=== PATIENT | female | born 1990 | race Caucasian/White ===

== ENCOUNTER 2017-04-09 18:30 | Observation (INO) | payer OTHER ==
[2017-04-09 19:03] LABS: PLATELET COUNT 315 10^3/uL (150-400)
--- NOTE | 2017-04-09 19:43 | PDGENHP ---
History and Physical History and Physical: HPI: Patient is a 27 yo that presents to L&D with complaints of severe heartburn and headache that is intermittent. She states she has tried tylenol with no relief. She has tried Tums with no relief. She denies any visual changes. She denies any OB complaints (contractions, LOF, VB). She reports +FM. EDC: 05/11/16 which is based on LMP: 08/03/16 which is known and consistent with Ultrasound at 20 weeks. Her is complicated by: Rubella Nonimmune, fam hx of cleft lip Review of Systems: Constitutional: Denies any fever, chills, or fatigue HEENT: denies any visual changes, difficulty swallowing, hearing loss Cardiovascular: Denies any chest pain, palpitations, leg swelling Respiratory: denies any cough, wheezing, or shortness of breathe GI: Denies any nausea, vomiting, diarrhea, constipation; reports +heartburn : denies any dysuria, urgency, frequency, vaginal bleeding Musculoskeletal: denies any muscle or bone pain Skin: denies any rashes Neuro: denies any seizures, lightheadedness, dizziness, or loss of consciousness ; does report intermittent headache. Psychiatric: denies any depression, anxiety, or SI/HI thoughts HISTORY: Previous OB history: G1 Past medical history: rubella nonimmune Past surgical history: oral surgery Medications: PNV Allergies (list reaction): NKDA LABS: Rh: O+ ABS: Neg Rubella: Immune HbsAg: NR HIV: NR VDRL: NR 1hr: 87 GC: Neg Chlamydia: Neg Pap: Normal GBS: unknown BMI: (prepreg) 27 PHYSICAL EXAM: Constitutional: WN, A&Ox3 HEENT: normocephalic atraumatic, supple Heart: RRR, no murmur Chest: CTA-B Abdomen: Soft, nontender, gravid SVE: 1/th/high Extremities: trace edema, negative homans sign Neuro: grossly normal Psych: normal affect assessment: Reassuring FHTs, baseline 130 +accels, no decels, moderate variability Contractions: toco q 2-8 Assessment: 1) 27yo with IUP@ 35-3wks 2) no evidence of PreE 3) no evidence of labor 4) heartburn 5) elevated P:C ratio Plan: 1) d/c home with 24 hr urine 2) advised PO zantac 150mg BID 3) keep next sched appt in office 4) FKC and PTL Prec discussed 5) discussed Pre E S&S- aware to call/return if any occur 6) discussed with Dr. Christo Dey- agrees with POC
== END 2017-04-09 21:15 | disposition home or self-care (01) ==
LOC: FLD 18:30
PROVIDERS: ADMIT Advanced Practice Midwife; ATTEND Advanced Practice Midwife
DX: O13.3 Gestational [pregnancy-induced] hypertension without significant proteinuria, third trimester (principal); Z3A.35 35 weeks gestation of pregnancy
CPT/HCPCS: 59025; G0378

== ENCOUNTER 2017-04-22 06:14 | Inpatient (IN) | payer OTHER ==
[2017-04-22 07:04] LABS: PLATELET COUNT 259 10^3/uL (150-400)
--- NOTE | 2017-04-22 07:08 | OBPROG ---
Labor Progress Note Assessment/Plan: Assessment:cat 1 fhr contractions q 5-6 minutes exam 2-3/75/-2 cephalic posterior right sided pain in abdomen wont go away denies PIH symptoms hypertension Plan:observation, pih labs IV continuous monitoring 04/22/17 07:06 04/22/17 07:09 Subjective/Intrapartum Course: 04/22/17 07:06 Regular contractions minimal pain. Right sided pain that won't go away that is causing greater pain. Denies leaking bleeding and cramping - SVE Dilation (cm): 2, 3 Effacement (%): 75 Station: -2 Membranes: Intact - Contraction Pattern Assessment Current Contraction Pattern: Regular - FHR Assessment Mae FHR (bpm): 145 FHR Pattern Variability: Moderate FHR Category: 1 - Physical Exam General Appearance: WD/WN, alert, no apparent distress Respiratory: chest non-tender, lungs clear, normal breath sounds Cardiac/Chest: regular rate, rhythm Abdomen: normal bowel sounds, other (right sided abdominal pain) Extremities: normal range of motion, Eddie's sign (negative bilaterally) DTR- Lower Extremities: Knee (R): 1+, Knee (L): 1+ (no clonus) Skin: normal color, warm/dry Neuro/Psych: no motor/sensory deficits, alert, normal mood/affect, oriented x 3 ICD10 Worksheet Patient Problems: Problems Problem Status Onset Hypertension affecting in third trimester Acute - ICD10 Problem Qualifiers (1) Hypertension affecting in third trimester
--- NOTE | 2017-04-22 07:41 | GHP ---
[f rep st] HISTORY AND PHYSICAL DATE OF ADMISSION: 04/22/2017 HISTORY OF PRESENT ILLNESS: Patient is a 27-year-old 1, para 0 with an EDC of 05/11/2017, at 37 weeks and 3 days gestational age, who comes in with complaint of regular contractions and pain on the right side of her abdomen that is continuous. Denies headache, blurry vision, spots, before eyes . States feeling positive movement. Denies bloody show. Denies rupture of membranes. Contra ctions are q.5-6 minutes apart and have been since about 8:30, 9 o'clock yesterday evening. Patient has been seen by [facility] since 8 weeks and 3 days. MEDICAL HISTORY: Rare UTI. SURGICAL HISTORY: Cyst removal left cheek at the age of 16, wisdom teeth extraction at the age of 22 . FAMILY HISTORY: Cleft lip. HISTORY: Patient is a primip, nonimmune to rubella. SOCIAL HISTORY: Patient denies drug use, alcohol use with the . The patient is to [place]. REVIEW OF SYSTEMS: Times 10 noncontributory. LABS: Patient is O positive, antibody negative. RPR is nonreactive. Rubella is nonimmune. Hepatit is is negative. HIV is negative. GBS is negative. Gonorrhea and chlamydia are negative. ALLERGIES: The patient has NKDA. MEDICATIONS: vitamin with DHA and iron q. day. GYNECOLOGICAL HISTORY: The patient began her menarche at 13 years of age, 28-day interval, 4 days of length. LMP was 08/03/2016. PHYSICAL ASSESSMENT: GENERAL: Patient is awake, alert, oriented x3. LUNGS: Clear bilaterally. AB DOMEN: Bowel sounds are positive in all 4 quadrants. NEUROLOGIC: DTRs are 1+ bilaterally with no c lonus. Homans sign is negative bilaterally. Patient complains of right abdominal pain from bottom o f rib cage down to pelvic bone. States that she started feeling that in the night and that has been continuous. Contractions are every 5-6 minutes. PELVIC: Patient is 2-3, 75, -2, posterior, soft, c ephalic. VITAL SIGNS: The patient on admit had 2 high blood pressures, 144/96, 135/96. Denies othe r PIH symptoms. PLAN OF CARE: 1. Patient is GBS negative. 2. PIH labs, continuous assessment of blood pressure, and transfer of care to Dr. Sophie Garza. /[id number]/MODL
[2017-04-22] MEDS ORDERED: MAG HYDROX/AL HYDROX/SIMETH 30 ML UDCUP PO ONE (10:28)
[2017-04-22] MEDS ORDERED: LIDOCAINE 2% VISCOUS 15 ML UDCUP PO ONE (10:28)
[2017-04-22] MEDS ORDERED: HYOSCYAMINE SULFATE 0.125 MG TAB PO ONE (10:28)
[2017-04-22] MEDS ORDERED: EPSOM SALT 454 GM TP PRN (10:30)
[2017-04-22] MEDS ORDERED: OXYTOCIN 20 UNIT in LR 1,000 ML IV PRN (10:30)
[2017-04-22] MEDS ORDERED: TERBUTALINE SULFATE 1 MG/ML VIAL IV PRN (10:30)
[2017-04-22] MEDS ORDERED: OLIVE OIL 118 ML BTL MISC PRN (10:30)
[2017-04-22] MEDS ORDERED: AMMONIA AROMATIC 1 EACH AMP IH PRN (10:30)
[2017-04-22] MEDS ORDERED: MISOPROSTOL 200 MCG TAB PO PRN (10:30)
[2017-04-22] MEDS ORDERED: LR 1,000 ML IV PRN (10:30)
[2017-04-22] MEDS ORDERED: LR 500 ML IV PRN (10:31)
--- NOTE | 2017-04-22 10:36 | OBPROG ---
Labor Progress Note Assessment/Plan: Assessment: Pt is a 26 y/o @ 37 3/7 weeks with mild preeclampsia Plan: Discussed with MFM-Dr. Quijano and with elev BPs upon admission 140/90's and elev P:C ratio, new dx of mild preeclampsia and recommend delivery at this time Pt with continuous R sided pain from rib cage to pelvis; will try GI cocktail and if no relief will trend LFTs q 6 hrs and if elev start MgSO4 Pt with a favorable cervix and Mishra score of 6, will start Pitocin per protocol GBS is negative, no prophylactic abx needed Will cont to monitor BPs and symptoms FHTs - Cat I tracing 04/22/17 10:32 Subjective/Intrapartum Course: 04/22/17 07:06 Regular contractions minimal pain. Right sided pain that won't go away that is causing greater pain. Denies leaking bleeding and cramping 04/22/17 10:36 Pt seen and examined. Stated R sided pain from rib cage to pelvic bone is still present and now 5/10 and at 0445 this am was an 8/10 that awoken her. Denies any HAs or visual changes. Denies any n/v. Can feel ctx's in lower abdomen. Denies any LOF or VB. Good FM noted. Objective: 04/22/17 06:45 04/22/17 06:45 Uric Acid 4.9 mg/dL (2.5-6.8) 04/22/17 06:45 Total Bilirubin 0.6 mg/dL (0.1-1.4) 04/22/17 06:45 Conjugated Bilirubin 0.3 mg/dL (0.0-0.5) 04/22/17 06:45 Unconjugated Bilirubin 0.3 mg/dL (0.0-1.1) 04/22/17 06:45 AST 24 IU/L (14-46) 04/22/17 06:45 ALT 29 IU/L (9-52) 04/22/17 06:45 Lactate Dehydrogenase 551 IU/L (313-618) 04/22/17 06:45 - SVE Membranes: Intact - Contraction Pattern Assessment Current Contraction Pattern: Irregular - FHR Assessment Mae FHR (bpm): 140 FHR Pattern Variability: Moderate FHR Category: 1 - AP Antepartum Course: 04/22/17 10:41 uncomplicated; Rubella non-immune. GBS neg. BPs normal. - Physical Exam Abdomen: normal bowel sounds, soft, other (mild tenderness R sided abdomen; garvid) Extremities: non-tender, normal inspection DTR- Lower Extremities: Plantar (R): 1+, Plantar (L): 1+ Neuro/Psych: alert, normal mood/affect, oriented x 3 Oxytocin Orders Assessment - Pre-Induction/Augmentation Assessment Gestational Age: 37 week(s) and 2 day(s) ICD10 Worksheet Patient Problems: Problems Problem Status Onset Hypertension affecting in third trimester Acute Mild preeclampsia Acute - ICD10 Problem Qualifiers (1) Mild preeclampsia
[2017-04-22] MEDS ORDERED: OXYTOCIN 30 UNIT in NS 500 ML IV SCH (10:45)
[2017-04-22] MEDS ORDERED: TERBUTALINE SULFATE 1 MG/ML VIAL ONE (11:40)
[2017-04-22] MEDS ORDERED: AMMONIA AROMATIC 1 EACH AMP IH ONE (11:40)
[2017-04-22] MEDS ORDERED: OLIVE OIL 118 ML BTL ONE (11:40)
[2017-04-22] MEDS ORDERED: LIDOCAINE 1% 300 MG/30 ML SDV ONE (11:40)
[2017-04-22] MEDS ORDERED: OXYTOCIN 10 UNIT/ML VIAL ONE (11:41)
--- NOTE | 2017-04-22 15:46 | OBPROG ---
Labor Progress Note Assessment/Plan: Assessment: Pt is a 26 y/o @ 37 3/7 weeks with mild preeclampsia Plan: Cervical exam is unchanged. SVE 1-2/50/-2, unable to AROM-head ballotable Attempted griffiths bulb placement and unable to get past internal os Pitocin was at 14 mu/min, pt states pain with ctx's 6/10 and ctx's q 2-3 min Pt desires an epidural when ctx's become more painful BPs stable 120-130/70-80's, asymptomatic. Will cont to closely monitor FHTs - Cat I tracing Discussed stopping Pitocin since no cervical change and by my exam only 1-2 cm dilated Will give oral Cytotec throughout the night and restart Pitocin in am at 0600 Pt agrees with the plan Regular diet for dinner 04/22/17 16:00 Subjective/Intrapartum Course: 04/22/17 07:06 Regular contractions minimal pain. Right sided pain that won't go away that is causing greater pain. Denies leaking bleeding and cramping 04/22/17 10:36 Pt seen and examined. Stated R sided pain from rib cage to pelvic bone is still present and now 5/10 and at 0445 this am was an 8/10 that awoken her. Denies any HAs or visual changes. Denies any n/v. Can feel ctx's in lower abdomen. Denies any LOF or VB. Good FM noted. 04/22/17 15:58 Pt states pain with ctx's 6/10. Right sided pain resolved after GI cocktail. No BLANDON's, visual changes-scotomata, RUQ pain. Objective: 04/22/17 06:45 04/22/17 06:45 Patient ABO/Rh O POSITIVE 04/22/17 10:40 Uric Acid 4.9 mg/dL (2.5-6.8) 04/22/17 06:45 Total Bilirubin 0.6 mg/dL (0.1-1.4) 04/22/17 06:45 Conjugated Bilirubin 0.3 mg/dL (0.0-0.5) 04/22/17 06:45 Unconjugated Bilirubin 0.3 mg/dL (0.0-1.1) 04/22/17 06:45 AST 24 IU/L (14-46) 04/22/17 06:45 ALT 29 IU/L (9-52) 04/22/17 06:45 Lactate Dehydrogenase 551 IU/L (313-618) 04/22/17 06:45 - SVE Dilation (cm): 2 (1-2 cm by my exam) Effacement (%): 50 Station: -3 Membranes: Intact - Contraction Pattern Assessment Current Contraction Pattern: Regular (q2-4) - FHR Assessment Mae FHR (bpm): 130 FHR Pattern Variability: Moderate FHR Category: 1 - AP Antepartum Course: 04/22/17 10:41 uncomplicated; Rubella non-immune. GBS neg. Pt presented to hospital with R sided pain from rib cage to pelvic bone and elev BPs 140/90's. Elevated P :C ratio. 04/22/17 15:57 Oxytocin Orders Assessment - Pre-Induction/Augmentation Assessment Gestational Age: 37 week(s) and 2 day(s) ICD10 Worksheet Patient Problems: Problems Problem Status Onset Hypertension affecting in third trimester Acute Mild preeclampsia Acute - ICD10 Problem Qualifiers (1) Mild preeclampsia
[2017-04-22] MEDS ORDERED: ZOLPIDEM TARTRATE 5 MG TAB PO PRN (16:09)
[2017-04-22] MEDS: MISOPROSTOL 100 MCG TAB PO SCH ×2 (17:52→21:58)
[2017-04-23] MEDS: MISOPROSTOL 100 MCG TAB PO SCH (02:01)
[2017-04-23] MEDS ORDERED: OXYTOCIN 30 UNIT in NS 500 ML IV SCH (06:00)
--- NOTE | 2017-04-23 09:16 | OBPROG ---
Labor Progress Note Assessment/Plan: Assessment: 27 y/o @ 37 4/7 weeks IOL secondary to pre-eclampsia doing well. Plan: AROM now and cervix has a much more favorable Mishra's score. Continue pitocin this am, ambulate and epidural when desires. status reassuring and BP have remained stable. 04/23/17 09:14 Subjective/Intrapartum Course: 04/22/17 07:06 Regular contractions minimal pain. Right sided pain that won't go away that is causing greater pain. Denies leaking bleeding and cramping 04/22/17 10:36 Pt seen and examined. Stated R sided pain from rib cage to pelvic bone is still present and now 5/10 and at 0445 this am was an 8/10 that awoken her. Denies any HAs or visual changes. Denies any n/v. Can feel ctx's in lower abdomen. Denies any LOF or VB. Good FM noted. 04/22/17 15:58 Pt states pain with ctx's 6/10. Right sided pain resolved after GI cocktail. No BLANDON's, visual changes-scotomata, RUQ pain. 04/23/17 09:11 Pt rested well overnight. She felt some cramping and contractions with the cytotec, but not severe. She denies BLANDON, visual changes and overall fells well. Good FM. Objective: 04/22/17 06:45 04/22/17 06:45 Patient ABO/Rh O POSITIVE 04/22/17 10:40 Uric Acid 4.9 mg/dL (2.5-6.8) 04/22/17 06:45 Total Bilirubin 0.6 mg/dL (0.1-1.4) 04/22/17 06:45 Conjugated Bilirubin 0.3 mg/dL (0.0-0.5) 04/22/17 06:45 Unconjugated Bilirubin 0.3 mg/dL (0.0-1.1) 04/22/17 06:45 AST 24 IU/L (14-46) 04/22/17 06:45 ALT 29 IU/L (9-52) 04/22/17 06:45 Lactate Dehydrogenase 551 IU/L (313-618) 04/22/17 06:45 - SVE Dilation (cm): 3 Effacement (%): 75 Station: -2 Membranes: AROM, Intact Amniotic Fluid Color: Clear - Contraction Pattern Assessment Current Contraction Pattern: Regular (q2-4), Irregular (Q 3-4) - FHR Assessment Mae FHR (bpm): 140 FHR Pattern Variability: Moderate FHR Category: 1 - Procedures Non-surgical Procedures: Amniotomy - AP Antepartum Course: 04/22/17 10:41 uncomplicated; Rubella non-immune. GBS neg. Pt presented to hospital with R sided pain from rib cage to pelvic bone and elev BPs 140/90's. Elevated P :C ratio. 04/22/17 15:57 Oxytocin Orders Assessment - Pre-Induction/Augmentation Assessment Gestational Age: 37 week(s) and 2 day(s) ICD10 Worksheet Patient Problems: Problems Problem Status Onset Hypertension affecting in third trimester Acute Mild preeclampsia Acute
[2017-04-23] MEDS ORDERED: fentaNYL 2MCG/ML/BUP 0.1% RTU 100 ML BAG EP ONE (12:54)
[2017-04-23] MEDS ORDERED: PHENYLEPHRINE HCL 100 MCG/ML SYR ONE (12:54)
[2017-04-23] MEDS ORDERED: ONDANSETRON 4 MG/2 ML VIAL IVP PRN (13:29)
[2017-04-23] MEDS ORDERED: PHENYLEPHRINE HCL 100 MCG/ML SYR IVP PRN (13:29)
--- NOTE | 2017-04-23 13:29 | PREANESOB ---
Obstetric Pre-Anesthesia Info - General Info : 1 Para: 0 MACRINA: 05/11/17 Gestational Age: 37 week(s) and 2 day(s) - Info Status: Full Term, Mae Monitors: External FHR Pattern: Reassuring - Labor Status Cervical Dilation per last OB SVE: 3 Station per last OB SVE: -2 Amniotic Fluid Color: Clear PIH: Mild Indications for Labor Analgesia: Induction of Labor, Pain Control Labor Epidural: Proposed Anesthesia Allergies/Adverse Reactions: Allergy/AdvReac Type Severity Reaction Status Date / Time No Known Allergies Allergy Unverified 04/09/17 18:50 Home Medications: Medication Instructions Recorded Vitamins 1 tab PO DAILY 04/09/17 Visit Medications: Generic Name Dose Route Start Last Admin Trade Name Freq PRN Reason Stop Dose Admin Ammonia (Aromatic Spirit) 1 each 04/22/17 10:30 Ammonia Aromatic IH 05/02/17 10:29 ONCE PRN Fainting Oxytocin 20 unit/ Lactated 1,002 mls @ 150 mls/hr 04/22/17 10:30 Ringer's IV PRN PRN Post- bleeding Oxytocin 30 unit/ Sodium 503 mls @ 0 mls/hr 04/23/17 06:00 04/23/17 05:57 Chloride IV 10/20/17 05:59 503 mls CONT DANIELLA Administration Protocol Per Protocol Ibuprofen 600 mg 04/22/17 10:30 Motrin PO 10/19/17 10:29 Q6HRS PRN post , inflammation Magnesium Sulfate 454 gm 04/22/17 10:30 Epsom Salt TP 10/19/17 10:29 Q1H PRN perineal discomfort Misoprostol 800 - 1,000 mcg 04/22/17 10:30 Cytotec PO ONCE PRN Vaginal Atony/Bleeding Misoprostol 50 mcg 04/22/17 16:15 04/23/17 02:01 Cytotec PO 10/19/17 16:14 50 mcg Q4H DANIELLA Administration [place] Oil 118 ml 04/22/17 10:30 Sweet Oil MISC 10/19/17 10:29 ONCE PRN perineal massage Terbutaline Sulfate 0.25 mg 04/22/17 10:30 Brethine IV 10/19/17 10:29 ONCE PRN Tachysystole Zolpidem Tartrate 5 mg 04/22/17 16:09 Ambien PO 10/19/17 16:08 HS PRN Sleep/Insomnia Discontinued Medications Generic Name Dose Route Start Last Admin Trade Name Freq PRN Reason Stop Dose Admin Al Hydroxide/Mg Hydroxide 30 ml 04/22/17 10:28 04/22/17 11:09 Maalox Susp PO 04/22/17 10:29 30 ml ONCE ONE Administration Ammonia (Aromatic Spirit) Confirm 04/22/17 11:40 Ammonia Aromatic Administered 04/22/17 11:41 Dose 1 each IH .STK-MED ONE Fentanyl/Bupivacaine HCl Confirm 04/23/17 12:54 Fentanyl/Bupivacaine/Ns 2 Mcg/Ml 0.1% (Premix Administered 04/23/17 12:55 Dose 100 ml EP .STK-MED ONE Hyoscyamine Sulfate 0.25 mg 04/22/17 10:28 04/22/17 11:07 Levsin, Hyomax-Sl PO 04/22/17 10:29 0.25 mg ONCE ONE Administration Lactated Ringer's 1,000 mls @ 0 mls/hr 04/22/17 10:30 04/22/17 11:26 Lr IV 04/23/17 10:29 1,000 mls PRN PRN Administration SEE PROTOCOL CONDITIONS Protocol Per Protocol Lactated Ringer's 500 mls @ 500 mls/hr 04/22/17 10:31 Lr IV 04/23/17 10:31 PRN PRN Maternal Hypotension Oxytocin 30 unit/ Sodium 503 mls @ 0 mls/hr 04/22/17 10:45 04/22/17 11:26 Chloride IV 10/19/17 10:44 503 mls CONT DANIELLA Administration Protocol Per Protocol Lidocaine 15 ml 04/22/17 10:28 04/22/17 11:09 Lidocaine 2% Viscous PO 04/22/17 10:29 15 ml ONCE ONE Administration Lidocaine HCl Confirm 04/22/17 11:40 Lidocaine Hcl 1% Administered 04/22/17 11:41 Dose 300 mg .ROUTE .STK-MED ONE [place] Oil Confirm 04/22/17 11:40 Sweet Oil Administered 04/22/17 11:41 Dose 118 ml .ROUTE .STK-MED ONE Oxytocin Confirm 04/22/17 11:41 Pitocin Administered 04/22/17 11:42 Dose 40 unit .ROUTE .STK-MED ONE Phenylephrine HCl Confirm 04/23/17 12:54 Neosynephrine Administered 04/23/17 12:55 Dose 1,000 mcg .ROUTE .STK-MED ONE Terbutaline Sulfate Confirm 04/22/17 11:40 Brethine Administered 04/22/17 11:41 Dose 1 mg .ROUTE .STK-MED ONE - Anesthesia History Anesthesia & Operative History: No Prior Problems - Vital Signs Height/Weight (Nursing): Height 175.26 cm Weight 96.162 kg - Focused Exam Mouth exam: normal dental/mouth exam Pulmonary: no respiratory distress, no rales or rhonchi, clear to auscultation Cardiovascular: regular rate and rhythym, no murmur, rub, or gallop Labs: 04/22/17 06:45 04/22/17 06:45 Patient ABO/Rh O POSITIVE 04/22/17 10:40 Uric Acid 4.9 mg/dL (2.5-6.8) 04/22/17 06:45 Total Bilirubin 0.6 mg/dL (0.1-1.4) 04/22/17 06:45 Conjugated Bilirubin 0.3 mg/dL (0.0-0.5) 04/22/17 06:45 Unconjugated Bilirubin 0.3 mg/dL (0.0-1.1) 04/22/17 06:45 AST 24 IU/L (14-46) 04/22/17 06:45 ALT 29 IU/L (9-52) 04/22/17 06:45 Lactate Dehydrogenase 551 IU/L (313-618) 04/22/17 06:45
[2017-04-23] MEDS ORDERED: fentaNYL 2MCG/ML/BUP 0.1% RTU 100 ML EP SCH (13:30)
[2017-04-23] MEDS ORDERED: LR 500 ML IV SCH (13:30)
--- NOTE | 2017-04-23 13:35 | POSTANESTH ---
Post Anesthetic Evaluation Cardiovascular Status: Normal, Stable, Similar to Pre-Op Cond Respiratory Status: Normal, Stable, Similar to Pre-op Cond. Level of Consciousness/Mental Status: Can Participate in Eval, Alert and Oriented Pain Control: Adequate, Prn Tx Ordered Nausea/Vomiting Control: Adequate, Prn Tx Ordered Complications Possibly Related to Anesthesia: None Noted
--- NOTE | 2017-04-23 13:40 | OBPROG ---
Labor Progress Note Assessment/Plan: Assessment: 27 y/o @ 37 4/7 weeks IOL secondary to pre-eclampsia doing well. Plan: Pt is comfortable with her epidural and I placed an IUPC, continue to increase pitocin to develop adequate contractions. BP are stable and status is reassuring. 04/23/17 09:14 04/23/17 13:39 Subjective/Intrapartum Course: 04/22/17 07:06 Regular contractions minimal pain. Right sided pain that won't go away that is causing greater pain. Denies leaking bleeding and cramping 04/22/17 10:36 Pt seen and examined. Stated R sided pain from rib cage to pelvic bone is still present and now 5/10 and at 0445 this am was an 8/10 that awoken her. Denies any HAs or visual changes. Denies any n/v. Can feel ctx's in lower abdomen. Denies any LOF or VB. Good FM noted. 04/22/17 15:58 Pt states pain with ctx's 6/10. Right sided pain resolved after GI cocktail. No BLANDON's, visual changes-scotomata, RUQ pain. 04/23/17 09:11 Pt rested well overnight. She felt some cramping and contractions with the cytotec, but not severe. She denies BLANDON, visual changes and overall fells well. Good FM. 04/23/17 13:38 Pt is now comfortable with her epidural. She was feeling strong contractions after AROM and with pitocin. Objective: 04/22/17 06:45 04/22/17 06:45 Patient ABO/Rh O POSITIVE 04/22/17 10:40 Uric Acid 4.9 mg/dL (2.5-6.8) 04/22/17 06:45 Total Bilirubin 0.6 mg/dL (0.1-1.4) 04/22/17 06:45 Conjugated Bilirubin 0.3 mg/dL (0.0-0.5) 04/22/17 06:45 Unconjugated Bilirubin 0.3 mg/dL (0.0-1.1) 04/22/17 06:45 AST 24 IU/L (14-46) 04/22/17 06:45 ALT 29 IU/L (9-52) 04/22/17 06:45 Lactate Dehydrogenase 551 IU/L (313-618) 04/22/17 06:45 - SVE Dilation (cm): 4 Effacement (%): 80 Station: -1 Membranes: AROM, Intact Amniotic Fluid Color: Clear - Contraction Pattern Assessment Current Contraction Pattern: Regular (Q 2-3), Irregular (Q 3-4) - FHR Assessment Mae FHR (bpm): 130 FHR Pattern Variability: Moderate FHR Category: 1 - Procedures Non-surgical Procedures: Amniotomy, IUPC - AP Antepartum Course: 04/22/17 10:41 uncomplicated; Rubella non-immune. GBS neg. Pt presented to hospital with R sided pain from rib cage to pelvic bone and elev BPs 140/90's. Elevated P :C ratio. 04/22/17 15:57 Oxytocin Orders Assessment - Pre-Induction/Augmentation Assessment Gestational Age: 37 week(s) and 2 day(s) ICD10 Worksheet Patient Problems: Problems Problem Status Onset Hypertension affecting in third trimester Acute Mild preeclampsia Acute
--- NOTE | 2017-04-23 18:08 | OBPROG ---
Labor Progress Note Assessment/Plan: Assessment: 27 y/o @ 37 4/7 weeks IOL secondary to pre-eclampsia doing well. Plan: She has made slow change. We are changing position turning her onto her side with the peanut ball and may try hands and knees. 04/23/17 09:14 04/23/17 13:39 04/23/17 18:06 Subjective/Intrapartum Course: 04/22/17 07:06 Regular contractions minimal pain. Right sided pain that won't go away that is causing greater pain. Denies leaking bleeding and cramping 04/22/17 10:36 Pt seen and examined. Stated R sided pain from rib cage to pelvic bone is still present and now 5/10 and at 0445 this am was an 8/10 that awoken her. Denies any HAs or visual changes. Denies any n/v. Can feel ctx's in lower abdomen. Denies any LOF or VB. Good FM noted. 04/22/17 15:58 Pt states pain with ctx's 6/10. Right sided pain resolved after GI cocktail. No BLANDON's, visual changes-scotomata, RUQ pain. 04/23/17 09:11 Pt rested well overnight. She felt some cramping and contractions with the cytotec, but not severe. She denies BLANDON, visual changes and overall fells well. Good FM. 04/23/17 13:38 Pt is now comfortable with her epidural. She was feeling strong contractions after AROM and with pitocin. 04/23/17 18:05 Pt is comfortable with her epidural. She rested this afternoon. Objective: 04/22/17 06:45 04/22/17 06:45 Patient ABO/Rh O POSITIVE 04/22/17 10:40 Uric Acid 4.9 mg/dL (2.5-6.8) 04/22/17 06:45 Total Bilirubin 0.6 mg/dL (0.1-1.4) 04/22/17 06:45 Conjugated Bilirubin 0.3 mg/dL (0.0-0.5) 04/22/17 06:45 Unconjugated Bilirubin 0.3 mg/dL (0.0-1.1) 04/22/17 06:45 AST 24 IU/L (14-46) 04/22/17 06:45 ALT 29 IU/L (9-52) 04/22/17 06:45 Lactate Dehydrogenase 551 IU/L (313-618) 04/22/17 06:45 - SVE Dilation (cm): 5 Effacement (%): 80 Station: -1 Membranes: AROM, Intact Amniotic Fluid Color: Clear - Contraction Pattern Assessment Current Contraction Pattern: Regular (Q 2-3), Irregular (Q 3-4) - Procedures Non-surgical Procedures: Amniotomy, IUPC - AP Antepartum Course: 04/22/17 10:41 uncomplicated; Rubella non-immune. GBS neg. Pt presented to hospital with R sided pain from rib cage to pelvic bone and elev BPs 140/90's. Elevated P :C ratio. 04/22/17 15:57 Oxytocin Orders Assessment - Pre-Induction/Augmentation Assessment Gestational Age: 37 week(s) and 2 day(s) ICD10 Worksheet Patient Problems: Problems Problem Status Onset Hypertension affecting in third trimester Acute Mild preeclampsia Acute
--- NOTE | 2017-04-23 20:01 | OBPROG ---
Labor Progress Note Assessment/Plan: Assessment: 27 y/o @ 37 4/7 weeks IOL secondary to pre-eclampsia doing well. Plan: She is beginning to push. status reassuring. 04/23/17 09:14 04/23/17 13:39 04/23/17 18:06 04/23/17 19:57 Subjective/Intrapartum Course: 04/22/17 07:06 Regular contractions minimal pain. Right sided pain that won't go away that is causing greater pain. Denies leaking bleeding and cramping 04/22/17 10:36 Pt seen and examined. Stated R sided pain from rib cage to pelvic bone is still present and now 5/10 and at 0445 this am was an 8/10 that awoken her. Denies any HAs or visual changes. Denies any n/v. Can feel ctx's in lower abdomen. Denies any LOF or VB. Good FM noted. 04/22/17 15:58 Pt states pain with ctx's 6/10. Right sided pain resolved after GI cocktail. No BLANDON's, visual changes-scotomata, RUQ pain. 04/23/17 09:11 Pt rested well overnight. She felt some cramping and contractions with the cytotec, but not severe. She denies BLANDON, visual changes and overall fells well. Good FM. 04/23/17 13:38 Pt is now comfortable with her epidural. She was feeling strong contractions after AROM and with pitocin. 04/23/17 18:05 Pt is comfortable with her epidural. She rested this afternoon. 04/23/17 19:56 Pt is feeling pelvic pressure and rectal pain in hands and knees today. Objective: 04/22/17 06:45 04/22/17 06:45 Patient ABO/Rh O POSITIVE 04/22/17 10:40 Uric Acid 4.9 mg/dL (2.5-6.8) 04/22/17 06:45 Total Bilirubin 0.6 mg/dL (0.1-1.4) 04/22/17 06:45 Conjugated Bilirubin 0.3 mg/dL (0.0-0.5) 04/22/17 06:45 Unconjugated Bilirubin 0.3 mg/dL (0.0-1.1) 04/22/17 06:45 AST 24 IU/L (14-46) 04/22/17 06:45 ALT 29 IU/L (9-52) 04/22/17 06:45 Lactate Dehydrogenase 551 IU/L (313-618) 04/22/17 06:45 - SVE Dilation (cm): 10 Effacement (%): 100 Station: +2 Membranes: AROM, Intact Amniotic Fluid Color: Clear Dilation Complete Date: 04/23/17 Dilation Complete Time: 19:50 - Contraction Pattern Assessment Current Contraction Pattern: Regular (Q 2-3), Irregular (Q 3-4) - Procedures Non-surgical Procedures: Amniotomy, IUPC - AP Antepartum Course: 04/22/17 10:41 uncomplicated; Rubella non-immune. GBS neg. Pt presented to hospital with R sided pain from rib cage to pelvic bone and elev BPs 140/90's. Elevated P :C ratio. 04/22/17 15:57 Oxytocin Orders Assessment - Pre-Induction/Augmentation Assessment Gestational Age: 37 week(s) and 2 day(s) ICD10 Worksheet Patient Problems: Problems Problem Status Onset Hypertension affecting in third trimester Acute Mild preeclampsia Acute
[2017-04-23] MEDS ORDERED: ACETAMINOPHEN 325 MG TAB PO PRN (22:38)
[2017-04-23] MEDS ORDERED: HYDROCORTISONE 0.5% CREAM TP PRN (22:38)
[2017-04-23] MEDS ORDERED: SIMETHICONE 80 MG TAB CHEW PO PRN (22:38)
[2017-04-23] MEDS ORDERED: HYDROCODONE/APAP 5/325 TAB PO PRN (22:38)
--- NOTE | 2017-04-23 22:42 | OBDEL ---
Info Type: Vaginal Presentation at Delivery: Vertex L&D Analgesia/Anesthesia Type: Epidural, Local (1% lidocaine) GBS+: No Intrapartum Medications: Generic Name Dose Route Start Last Admin Trade Name Cristino PRN Reason Stop Dose Admin Oxytocin 30 unit/ Sodium 503 mls @ 0 mls/hr 04/23/17 06:00 04/23/17 05:57 Chloride IV 10/20/17 05:59 503 mls CONT DANIELLA Administration Protocol Per Protocol Fentanyl/Bupivacaine HCl 100 mls @ 0 mls/hr 04/23/17 13:30 04/23/17 19:38 Fentanyl/Bupivacaine/Ns 2 Mcg/Ml 0.1% (Premix EP 05/03/17 13:29 100 mls CONT DANIELLA Administration Protocol As Directed Misoprostol 50 mcg 04/22/17 16:15 04/23/17 02:01 Cytotec PO 10/19/17 16:14 50 mcg Q4H DANIELLA Administration [place] 118 ml 04/22/17 10:30 04/23/17 20:54 Sweet Oil MISC 10/19/17 10:29 118 ml ONCE PRN Administration perineal massage Ondansetron HCl 4 mg 04/23/17 13:29 04/23/17 21:55 Zofran IVP 04/24/17 13:28 4 mg Q4HRS PRN Administration Nausea/Vomiting, Can't Take PO Discontinued Medications Generic Name Dose Route Start Last Admin Trade Name Cristino PRN Reason Stop Dose Admin Al Hydroxide/Mg Hydroxide 30 ml 04/22/17 10:28 04/22/17 11:09 Maalox Susp PO 04/22/17 10:29 30 ml ONCE ONE Administration Hyoscyamine Sulfate 0.25 mg 04/22/17 10:28 04/22/17 11:07 Levsin, Hyomax-Sl PO 04/22/17 10:29 0.25 mg ONCE ONE Administration Lactated Ringer's 1,000 mls @ 0 mls/hr 04/22/17 10:30 04/22/17 11:26 Lr IV 04/23/17 10:29 1,000 mls PRN PRN Administration SEE PROTOCOL CONDITIONS Protocol Per Protocol Oxytocin 30 unit/ Sodium 503 mls @ 0 mls/hr 04/22/17 10:45 04/22/17 11:26 Chloride IV 10/19/17 10:44 503 mls CONT DANIELLA Administration Protocol Per Protocol Lidocaine 15 ml 04/22/17 10:28 04/22/17 11:09 Lidocaine 2% Viscous PO 04/22/17 10:29 15 ml ONCE ONE Administration - Hospital Course Intrapartum: 04/22/17 07:06 Regular contractions minimal pain. Right sided pain that won't go away that is causing greater pain. Denies leaking bleeding and cramping 04/22/17 10:36 Pt seen and examined. Stated R sided pain from rib cage to pelvic bone is still present and now 5/10 and at 0445 this am was an 8/10 that awoken her. Denies any HAs or visual changes. Denies any n/v. Can feel ctx's in lower abdomen. Denies any LOF or VB. Good FM noted. 04/22/17 15:58 Pt states pain with ctx's 6/10. Right sided pain resolved after GI cocktail. No BLANDON's, visual changes-scotomata, RUQ pain. 04/23/17 09:11 Pt rested well overnight. She felt some cramping and contractions with the cytotec, but not severe. She denies BLANDON, visual changes and overall fells well. Good FM. 04/23/17 13:38 Pt is now comfortable with her epidural. She was feeling strong contractions after AROM and with pitocin. 04/23/17 18:05 Pt is comfortable with her epidural. She rested this afternoon. 04/23/17 19:56 Pt is feeling pelvic pressure and rectal pain in hands and knees today. Indications for Delivery: Gestational Hypertension Vaginal Delivery - Delivery Provider Delivery Physician/CNM: Kya Fontaine - Labor and Delivery Onset of Contractions Date: 04/23/17 Onset of Contractions Time: 13:00 Onset of Contractions Type: Induced Rupture of Membranes Date: 04/23/17 Rupture of Membranes Time: 09:06 Rupture of Membranes Type: Artificial Amniotic Fluid Color: Clear Dilation Complete Date: 04/23/17 Dilation Complete Time: 19:50 Placenta Delivery Date: 04/23/17 Placenta Delivery Time: 22:25 Total Hours of Labor: 9 Non-surgical Procedures: Amniotomy, IUPC Laceration: 1st Degree (hymenal ring) Repair: 3-0, Vicryl Vaginal Sponge Count Correct: Yes Vaginal Needle Count Correct: Yes Vaginal Sweep Performed: Yes EBL: 200 Delivery Events: Nuchal Cord (loose x 1) - Medications Labor Augmentation/Induction Methods Used: Pitocin Labor Augmentation/Induction Indication: Other (Specify) (gestational HTN) Data MACRINA: 05/11/17 Gestational Age: 37 week(s) and 3 day(s) Mae Delivery Date: 04/23/17 Delivery Time: 22:21 Sex of Infant: Male Score (1 Min): 8 Score (5 Min): 9 ICD10 Worksheet Patient Problems: Problems Problem Status Onset Hypertension affecting in third trimester Acute Mild preeclampsia Acute (spontaneous vaginal delivery) Acute - ICD10 Problem Qualifiers (1) (spontaneous vaginal delivery)
[2017-04-23] MEDS: IBUPROFEN 600 MG TAB PO PRN (23:42)
[2017-04-24] MEDS: DOCUSATE SODIUM 100 MG CAP PO PRN ×2 (04:48→09:13)
[2017-04-24] MEDS: IBUPROFEN 600 MG TAB PO PRN ×3 (06:30→19:02)
--- NOTE | 2017-04-24 11:17 | OBPP ---
Progress Note Assessment/Plan: Assessment: [id number] s/p PPD#1 Plan: routine pp care ambulate cont plan to d/c home tomorrow 04/24/17 12:08 Subjective/ Course: 04/24/17 12:09 Pt doing well, she denies any pain or heavy bleeding. She is ambulating and voiding without difficulty. FOB @ BS, supportive. Pt denies any depression, states she is very happy. Objective: 04/22/17 06:45 04/22/17 06:45 Patient ABO/Rh O POSITIVE 04/22/17 10:40 Uric Acid 4.9 mg/dL (2.5-6.8) 04/22/17 06:45 Total Bilirubin 0.6 mg/dL (0.1-1.4) 04/22/17 06:45 Conjugated Bilirubin 0.3 mg/dL (0.0-0.5) 04/22/17 06:45 Unconjugated Bilirubin 0.3 mg/dL (0.0-1.1) 04/22/17 06:45 AST 24 IU/L (14-46) 04/22/17 06:45 ALT 29 IU/L (9-52) 04/22/17 06:45 Lactate Dehydrogenase 551 IU/L (313-618) 04/22/17 06:45 Temp Pulse Resp BP Pulse Ox 36.6 C 95 18 107/71 04/24/17 03:25 04/24/17 03:25 04/24/17 03:25 04/24/17 03:25 Uterine Position/Fundal Height: Umbilicus -1, Midline Uterine Tone: Firm Physical Exam - Physical Exam EENT: PERRL/EOMI Neck: supple Respiratory: normal breath sounds Abdomen: non-tender, soft Extremities: pedal edema Back: Normal inspection Skin: normal color, warm/dry Neuro/Psych: no motor/sensory deficits, alert, normal mood/affect, oriented x 3
[2017-04-24] MEDS: MISOPROSTOL 100 MCG TAB PO SCH ×4 (15:45→21:09)
[2017-04-25] MEDS: IBUPROFEN 600 MG TAB PO PRN ×2 (01:12→07:18)
[2017-04-25] MEDS: DOCUSATE SODIUM 100 MG CAP PO PRN (01:12)
[2017-04-25 09:20] VITALS: BP 125/83; PULSE 87; RESP 20; TEMP 97.1; O2SAT 93
[2017-04-25] MEDS ORDERED: MEASLES,MUMPS&RUBELLA VACC/PF 0.5 ML VIAL SC ONE (10:37)
--- NOTE | 2017-04-25 10:40 | OBPP ---
Progress Note Assessment/Plan: Assessment: PPD 1 1/2 s/p , gest HTN, Plan: d/c home 04/25/17 10:38 Subjective/ Course: 04/24/17 12:09 Pt doing well, she denies any pain or heavy bleeding. She is ambulating and voiding without difficulty. FOB @ BS, supportive. Pt denies any depression, states she is very happy. 04/25/17 10:39 Pt doing well. bld has really decreased per pt. urinating fine. bottom very sore - using ibu. baby is latching well. No HAs or nausea or visual changes. desires d/c Objective: 04/22/17 06:45 04/22/17 06:45 Patient ABO/Rh O POSITIVE 04/22/17 10:40 Uric Acid 4.9 mg/dL (2.5-6.8) 04/22/17 06:45 Total Bilirubin 0.6 mg/dL (0.1-1.4) 04/22/17 06:45 Conjugated Bilirubin 0.3 mg/dL (0.0-0.5) 04/22/17 06:45 Unconjugated Bilirubin 0.3 mg/dL (0.0-1.1) 04/22/17 06:45 AST 24 IU/L (14-46) 04/22/17 06:45 ALT 29 IU/L (9-52) 04/22/17 06:45 Lactate Dehydrogenase 551 IU/L (313-618) 04/22/17 06:45 Temp Pulse Resp BP Pulse Ox 36.2 C 87 20 125/83 H 93 04/25/17 09:00 04/25/17 09:00 04/25/17 09:00 04/25/17 09:00 04/25/17 09:00 Uterine Position/Fundal Height: Umbilicus -1 Uterine Tone: Firm Physical Exam - Physical Exam Abdomen: non-tender, soft, other (FF at umb -1) Extremities: non-tender, pedal edema (mild) Skin: normal color, warm/dry Neuro/Psych: alert, normal mood/affect
--- NOTE | 2017-04-25 10:45 | OBGCSDC ---
General Delivery Information - General Info : 1 Para: 1 Abortions: 0 Type: Vaginal L&D Analgesia/Anesthesia Type: Epidural, Local Admission Date: 04/22/17 Labs: Patient ABO/Rh O POSITIVE 04/22/17 10:40 Hct 39.7 % (38.0-47.0) 04/22/17 06:45 - Hospital Course Antepartum: 04/22/17 10:41 uncomplicated; Rubella non-immune. GBS neg. Pt presented to hospital with R sided pain from rib cage to pelvic bone and elev BPs 140/90's. Elevated P :C ratio. 04/22/17 15:57 Intrapartum: 04/22/17 07:06 Regular contractions minimal pain. Right sided pain that won't go away that is causing greater pain. Denies leaking bleeding and cramping 04/22/17 10:36 Pt seen and examined. Stated R sided pain from rib cage to pelvic bone is still present and now 5/10 and at 0445 this am was an 8/10 that awoken her. Denies any HAs or visual changes. Denies any n/v. Can feel ctx's in lower abdomen. Denies any LOF or VB. Good FM noted. 04/22/17 15:58 Pt states pain with ctx's 6/10. Right sided pain resolved after GI cocktail. No BLANDON's, visual changes-scotomata, RUQ pain. 04/23/17 09:11 Pt rested well overnight. She felt some cramping and contractions with the cytotec, but not severe. She denies BLANDON, visual changes and overall fells well. Good FM. 04/23/17 13:38 Pt is now comfortable with her epidural. She was feeling strong contractions after AROM and with pitocin. 04/23/17 18:05 Pt is comfortable with her epidural. She rested this afternoon. 04/23/17 19:56 Pt is feeling pelvic pressure and rectal pain in hands and knees today. : 04/24/17 12:09 Pt doing well, she denies any pain or heavy bleeding. She is ambulating and voiding without difficulty. FOB @ BS, supportive. Pt denies any depression, states she is very happy. 04/25/17 10:39 Pt doing well. bld has really decreased per pt. urinating fine. bottom very sore - using ibu. baby is latching well. No HAs or nausea or visual changes. desires d/c Vaginal - Delivery Provider Delivery Physician/CNM: Kya Fontaine - Diagnosis Labor: Induced Rupture of Membranes Type: Artificial Amniotic Fluid Color: Clear Laceration: 1st Degree (hymenal ring) Repair: 3-0, Vicryl Delivery Events: Nuchal Cord (loose x 1) - Procedures Non-surgical Procedures: Amniotomy, IUPC - Delivery Non-surgical Procedures: Amniotomy, IUPC EBL: 200 [place] Data MACRINA: 05/11/17 Gestational Age: 37 week(s) and 5 day(s) Mae Delivery Date: 04/23/17 Delivery Time: 22:21 Sex of : Male Score (1 Min): 8 Score (5 Min): 9 Discharge Information - Discharge Information Condition: Good Instruction/Follow Up: One Week (for b/p check), Four Weeks (with therapist), Six Weeks (with BP)
== END 2017-04-25 13:06 | disposition home or self-care (01) | DRG 775 ==
LOC: FLD 06:14 → OBSVTOIN 10:31 → FOB 04-24 01:39
PROVIDERS: ADMIT Advanced Practice Midwife; ATTEND Obstetrics & Gynecology
PROC: 0HQ9XZZ Repair Perineum Skin, External Approach (ICD-10-PCS; principal; 2017-04-22)
PROC: 10907ZC Drainage of Amniotic Fluid, Therapeutic from Products of Conception, Via Natural or Artificial Opening (ICD-10-PCS; principal; 2017-04-22)
PROC: 3E0P7GC Introduction of Other Therapeutic Substance into Female Reproductive, Via Natural or Artificial Opening (ICD-10-PCS; principal; 2017-04-22)
PROC: 3E033VJ Introduction of Other Hormone into Peripheral Vein, Percutaneous Approach (ICD-10-PCS; principal; 2017-04-22)
PROC: 10E0XZZ Delivery of Products of Conception, External Approach (ICD-10-PCS; principal; 2017-04-22)
DX: O14.04 Mild to moderate pre-eclampsia, complicating childbirth (principal); O70.0 First degree perineal laceration during delivery; O69.81X0 Labor and delivery complicated by cord around neck, without compression, not applicable or unspecified; Z3A.37 37 weeks gestation of pregnancy; Z37.0 Single live birth
CPT/HCPCS: J2370; J2405; J2590; J3105